=== PATIENT | female | born 1995 | race Two or more races ===

== ENCOUNTER → 2019-06-30 | Outpatient (CLI) | payer OTHER | END | disposition home or self-care (01) | LOC: PRENATAL 15:00 | DX: O26.842 Uterine size-date discrepancy, second trimester (principal); O35.3XX0 Maternal care for (suspected) damage to fetus from viral disease in mother, not applicable or unspecified; O36.5911 Maternal care for other known or suspected poor fetal growth, first trimester, fetus 1; Z36.89 Encounter for other specified antenatal screening ==